=== PATIENT | female | born 1975 | race Caucasian/White ===

== ENCOUNTER 2019-07-03 06:09 | Day surgery (SDC) | payer OTHER ==
[~2019-07-03] VITALS: Ht 167.6 cm; Wt 62.4 kg
[~2019-07-03 06:09] MED LIST: HYDACE5 PO; NAPR550 PO; ONE DAILY COMP1 EACH PO
== END 2019-07-03 09:10 | disposition home or self-care (01) ==
LOC: ORSCSDS 06:09
PROVIDERS: Podiatrist Foot & Ankle Surgery
PROC: 01BG0ZZ Excision of Tibial Nerve, Open Approach (ICD-10-PCS; principal; 2019-07-03 07:30)
DX: G57.62 Lesion of plantar nerve, left lower limb (principal)
CPT/HCPCS: 88304; A9270-GY; J0171; J0690; J1885; J2250; J2405; J2704; J3010; J7120

== ENCOUNTER → 2020-08-04 | Outpatient (CLI) | payer OTHER ==
[2020-08-06 16:09] LABS: FATS, NEUTRAL Normal (.); FATS, TOTAL Normal (.)
== END | disposition home or self-care (01) ==
LOC: LAB SHORT 14:00 → LAB 14:00
PROVIDERS: Family Medicine
DX: K52.9 Noninfective gastroenteritis and colitis, unspecified (principal); R14.0 Abdominal distension (gaseous); R10.84 Generalized abdominal pain
CPT/HCPCS: 82705; 83993

== ENCOUNTER 2020-12-16 20:54 | Emergency (ER) | payer OTHER ==
[~2020-12-16] VITALS: Ht 167.6 cm; Wt 63.5 kg
== END 2020-12-16 23:37 | disposition home or self-care (01) ==
LOC: ER 20:54
DX: S01.01XA Laceration without foreign body of scalp, initial encounter (principal); Z88.2 Allergy status to sulfonamides; Z88.1 Allergy status to other antibiotic agents; Z23 Encounter for immunization; W22.8XXA Striking against or struck by other objects, initial encounter
CPT/HCPCS: 12001; 70450; 72125; 90714; 99283-25

== ENCOUNTER → 2021-09-27 | Outpatient (CLI) | payer OTHER | END | disposition home or self-care (01) | LOC: LAB SHORT 09:01 → LAB 09:01 | DX: R10.13 Epigastric pain (principal) | CPT/HCPCS: 87338 ==

== ENCOUNTER → 2023-04-03 | Outpatient (CLI) | payer OTHER ==
[2023-04-04 14:11] LABS: HPV 16 Negative (Negative); HPV 18 Negative (Negative); HPV OTHER HR TYPES Negative (Negative)
== END ==
LOC: LAB 13:36 → LAB SHORT 13:36
PROVIDERS: Registered Nurse Community Health
DX: Z12.4 Encounter for screening for malignant neoplasm of cervix (principal)
CPT/HCPCS: 87624; G0145

== ENCOUNTER → 2023-10-30 | Outpatient (CLI) | payer OTHER | LOC: LAB SHORT 15:53 → LAB 15:53 | DX: L08.0 Pyoderma (principal) | CPT/HCPCS: 87070; 87205 ==

== ENCOUNTER 2024-08-07 01:25 | Emergency (ER) | payer OTHER, SELFPAY ==
[~2024-08-07] VITALS: Ht 167.6 cm; Wt 65.8 kg
[2024-08-07 01:56] VITALS: BP 123/76
[2024-08-07] MEDS ORDERED: DOXYCYCLINE HY100 M1 PO (13:29)
[2024-08-07] MEDS ORDERED: Ondansetron HCl 2 MG / ML 2ML Vial ONE (15:07)
[2024-08-07] MEDS ORDERED: Ketorolac Tromethamine 30mg Vial ONE (15:07)
[2024-08-07] MEDS ORDERED: Dexamethasone Sod Phos 10 MG/ML 1ML VIAL ONE (15:07)
[2024-08-07] MEDS ORDERED: Rocuronium Bromide 10 MG/ML 5ML Injection IV ONE (15:07)
[2024-08-07] MEDS ORDERED: HYDROmorphone HCl/Pf 1MG SYR ONE (15:08)
[2024-08-07] MEDS ORDERED: propofoL 20 ML IV ONE (15:08)
[2024-08-07] MEDS ORDERED: Sugammadex Sodium 200 MG/2ML SDV (100 MG/ML) ONE (15:08)
[2024-08-07] MEDS ORDERED: propofoL 100 ML IV ONE (15:08)
[2024-08-07] MEDS ORDERED: Lidocaine HCl 2% 20 ML MDV ONE (16:12)
[2024-08-07] MEDS ORDERED: Phenylephrine HCl 100 MCG/ML-NS 10MLSYR (1MG/10ML) ONE (16:35)
[2024-08-07] MEDS ORDERED: HYDR1TAB94 PO (18:43)
== END 2024-08-07 02:13 | disposition left against medical advice (07) ==
LOC: ER 01:25
DX: Z53.21 Procedure and treatment not carried out due to patient leaving prior to being seen by health care provider (principal)
CPT/HCPCS: J1100; J1171; J1885; J2371; J2405; J2704

== ENCOUNTER 2024-08-07 05:10 | Observation (INO) | payer OTHER, SELFPAY ==
[~2024-08-07] VITALS: Ht 162.6 cm; Wt 56.7 kg
[2024-08-07] VITALS (15 sets, daily range): BP systolic 107–123; BP diastolic 57–87
[2024-08-07] MEDS ORDERED: Ondansetron HCl 2 MG / ML 2ML Vial IV PRN ×2 (05:35→10:10)
[2024-08-07 05:51] LABS: BASOPHILS ABSOLUTE AUTO 0.02 K/mm3 (0.00-0.23); BASOPHILS PERCENT AUTO 0 % (0-2); EOSINOPHILS ABSOLUTE AUTO 0.04 K/mm3 (0.00-0.68); EOSINOPHILS PERCENT AUTO 0 % (0-6); Hematocrit 42.6 % (33.0-51.0); Hemoglobin 14.6 g/dL (11.5-16.0); IMMATURE GRAN ABSOLUTE AUTO 0.04 K/mm3 (0.00-0.10); IMMATURE GRAN PERCENT AUTO 0 % (0-1); LYMPHOCYTES ABSOLUTE AUTO 1.01 K/mm3 (0.84-5.20); LYMPHOCYTES PERCENT AUTO 11 % (21-46); MONOCYTES ABSOLUTE AUTO 0.36 K/mm3 (0.16-1.47); MONOCYTES PERCENT AUTO 4 % (4-13); Mean Corpuscular HGB Conc 34.3 g/dL (31.5-36.5); Mean Corpuscular Volume 90 fL (80-100); Mean Platelet Volume 9.6 fL (9.1-12.4); NEUTROPHILS ABSOLUTE AUTO 7.91 K/mm3 (1.96-9.15); NEUTROPHILS PERCENT AUTO 84 % (41-73); Platelet Count 214 K/mm3 (150-400); RDW Coefficient Variation 12.6 % (11.7-14.2); RDW Standard Deviation 41.5 fL (35.1-46.3); Red Blood Cell Count 4.71 M/mm3 (3.80-5.20); White Blood Cell Count 9.38 K/mm3 (4.00-11.30)
[2024-08-07 06:15] LABS: Albumin, Blood 3.7 g/dL (3.4-5.0); Albumin/Globulin Ratio 1.1 (0.8-1.8); Bilirubin, Total 0.7 mg/dL (0.1-1.0); Bun/Creatinine Ratio 19.2 (12.0-20.0); Calcium, Blood 9.6 mg/dL (8.5-10.1); Creatinine, Blood 0.83 mg/dL (0.40-1.00); Globulin, Blood 3.4 g/dL (2.2-4.0); Potassium, Blood 4.2 mmol/L (3.5-5.5); Total Protein, Blood 7.1 g/dL (6.4-8.2)
[2024-08-07] MEDS ORDERED: Famotidine 20 MG Tab PO ONE (06:40)
[2024-08-07] MEDS ORDERED: Lidocaine 2% Viscous Soln 15 ML UDC PO ONE (06:40)
[2024-08-07] MEDS ORDERED: Mag Hydrox/AL Hydrox/Simeth 30 ML UDC PO ONE (06:40)
[2024-08-07] MEDS ORDERED: FentaNYL Citrate 50 MCG/ML 2 ML Injection IV PRN ×4 (10:05→17:40)
[2024-08-07] MEDS ORDERED: FLU VACC TS2024-25(6MOS UP)/PF 45 MCG/0.5 ML SYRINGE IM PRN (10:05)
[2024-08-07] MEDS ORDERED: HYDROcodone 5-APAP 325 TAB PO PRN (10:05)
[2024-08-07] MEDS ORDERED: Lactated Ringer's 1,000 ML IV SCH (10:10)
[2024-08-07] MEDS ORDERED: CeFAZolin Sodium 2,000 MG in NS 100 ML IV SCH (10:10)
[2024-08-07] MEDS ORDERED: FLU VACC TS2024-25(6MOS UP)/PF 45 MCG/0.5 ML SYRINGE IM ONE (11:05)
[2024-08-07] MEDS ORDERED: DOXYCYCLINE HY100 M1 PO (13:29)
--- NOTE | 2024-08-07 14:13 | NUR ---
REPORT GIVEN TO JARROD DAVIS RN.
[2024-08-07] MEDS ORDERED: Ondansetron HCl 2 MG / ML 2ML Vial IV ONE (14:15)
[2024-08-07] MEDS ORDERED: HYDROmorphone HCl/Pf 1MG SYR IV ONE (14:15)
[2024-08-07] MEDS ORDERED: HYDROmorphone HCl/Pf 1MG SYR ONE ×2 (14:17→17:47)
[2024-08-07] MEDS ORDERED: Bupivacaine 0.5% HCl 5 MG/ML 30MLVIAL ONE (14:55)
[2024-08-07] MEDS ORDERED: HYDROmorphone HCl/Pf 1MG SYR IV PRN ×2 (17:20→17:25)
[2024-08-07] MEDS ORDERED: Droperidol 5 mg/2 ml Vial IV PRN (17:25)
[2024-08-07] MEDS ORDERED: Acetaminophen 325 MG TABLET PO ONE (18:00)
--- NOTE | 2024-08-07 18:41 | NUR ---
POST-OP KAMALA LAP SITES X4 UMBILICUS IS OOSING SLIGHTLY RE-EFORCED WITH GAUZE AND TAPE. PATIENT IS AOX4, TOLERATING PO INTAKE. MEDICATED FOR PAIN. VSS. DISCHARGE ORDERS ARE IN AND PATIENT STATES SHE PLANS TO GO HOME TONIGHT. CALL LIGHT IN REACH.
[2024-08-07] MEDS ORDERED: HYDR1TAB94 PO (18:43)
[2024-08-07] MEDS ORDERED: Simethicone 80 MG Chew PO ONE (19:00)
--- NOTE | 2024-08-07 21:07 | NUR ---
DISCHARGED POD0 FOR KAMALA, VSS, PATIENT VOIDING, EATING TOLERATING PAIN MEDICAITONS. IV TAKEN OUT INSTRUCTIONS READ AND UNDERSTOOD. PAIN MEDICATIONS PICKED UP FROM PHARMACY BY SPOUSE. PATIENT LEAVES VIA PRIVATE VEHICLE.
[2024-08-08] MEDS ORDERED: Enoxaparin 40 MG/0.4 ML SYR SC SCH (09:00)
== END 2024-08-07 21:00 | disposition home or self-care (01) ==
LOC: ER 05:10 → ERHOLD 05:11 → SURS 13:16
PROVIDERS: Emergency Medicine; ADMIT Surgery
PROC: 0FT44ZZ Resection of Gallbladder, Percutaneous Endoscopic Approach (ICD-10-PCS; principal; 2024-08-07 15:30)
DX: K82.4 Cholesterolosis of gallbladder (principal); Z88.2 Allergy status to sulfonamides; Z88.8 Allergy status to other drugs, medicaments and biological substances
CPT/HCPCS: 76705; 80053; 81025; 83690; 85025; 88304; 96374; 99285-25; A9270; G0378; J0690; J1100; J1171; J1885; J2371; J2405; J2704; J7120